=== PATIENT | male | born 1945 | race Caucasian/White ===

== ENCOUNTER 2016-11-13 09:03 | Day surgery (SDC) | payer MEDICARE, BC ==
[~2016-11-13] VITALS: Ht 147.3 cm; Wt 64.4 kg
[~2016-11-13 09:03] MED LIST: BUPIVACAINE-EPI 0.25%-1:200000 MPF 30 ML VIAL. ONE; HYDROmorphone 2 MG/ML VIAL IV PRN; IV RINGERS,LACTATED 1000ML 1,000 ML IV SCH; LIDOCAINE 1% 1 ML SYRINGE. ID PRN; MORPHINE SULFATE 2 MG/ML DISP.SYRIN. IV PRN; ONDANSETRON PF 4 MG/2 ML VIAL. IV PRN; PROCHLORPERAZINE 10 MG/2 ML VIAL. IV PRN; fentaNYL PF VIAL 100 MCG/2 ML VIAL IV PRN
[2016-11-13] MEDS ORDERED: LIDOCAINE 2% PF Vial for OR 5 ML VIAL. ONE (09:09)
[2016-11-13] MEDS ORDERED: fentaNYL PF VIAL 100 MCG/2 ML VIAL ONE ×3 (09:09→12:41)
[2016-11-13] MEDS ORDERED: PROPOFOL 20 ML IV ONE (09:09)
[2016-11-13] MEDS ORDERED: SUCCINYLCHOLINE 200 MG/10 ML VIAL. ONE (09:09)
[2016-11-13] MEDS ORDERED: GABA-586 PO (09:28)
[2016-11-13] MEDS ORDERED: ATOR10TA60 PO (09:28)
[2016-11-13] MEDS ORDERED: ASPI-482 PO (09:28)
[2016-11-13] MEDS ORDERED: OXYC-328 PO (09:28)
[2016-11-13] MEDS ORDERED: SCOPOLAMINE 1.5MG PATCH. TD ONE ×3 (09:41→10:00)
[2016-11-13] MEDS ORDERED: ceFAZolin 2GM PREMIX 2 GM/50 ML BAG IV ONE (10:00)
[2016-11-13] MEDS ORDERED: DEXAMETHASONE SOD PHOS 20 MG/5 ML VIAL. ONE (10:34)
[2016-11-13] MEDS ORDERED: DESFLURANE 31 TO 60 MINUTES IH ONE (10:34)
[2016-11-13] MEDS ORDERED: GLYCOPYRROLATE 1 MG/5 ML VIAL. ONE (11:12)
[2016-11-13] MEDS ORDERED: ONDANSETRON PF 4 MG/2 ML VIAL. ONE (11:12)
--- NOTE | 2016-11-13 11:27 | PDOC4 ---
Operative Note Operative Note Date: 11/13/2016 Preoperative diagnosis: Right inguinal hernia Postoperative diagnosis: Same Procedure: Robotic-assisted laparoscopic right inguinal hernia repair with mesh Surgeon: Jim Specimen: None Dictation: Patient is a 71-year-old male with complaints of a painful right inguinal hernia. Procedure of robotic-assisted laparoscopic right inguinal hernia repair with mesh was explained to the patient in detail all risks and benefits were also discussed including bleeding infection injury to intra- abdominal contents possibly necessitating further or open operations. The patient seemed understanding gave both verbal and written consent to have the procedure performed. Patient was taken to the operating room placed in supine position general anesthesia was initiated once patient was asleep and intubated he was then placed in low lithotomy positioning. His abdomen was prepped and draped usual sterile fashion using ChloraPrep. At this point a area and the left upper quadrant was injected with half percent Marcaine with epinephrine and an incision was made with 11 blade scalpel using a Visiport direct access was obtained to the abdominal cavity and a pneumoperitoneum was achieved. The abdomen was inspected with a 5 mm camera no other at maladies were noted he had no adhesions. At this point 8 mm da Dominique ports were placed one in the left mid abdomen one at the umbilicus and one in the right mid abdomen all under direct visualization. At this time the da Dominique robot was brought in and docked all the ports 30 camera was placed through the umbilical port using a grasper and Endo Chuck scissors a window was propagated in the peritoneum over the hernia defect reducing the hernia contents. Pro medical record technician mesh was then placed over the hernia defect. And the peritoneum was closed with a running 2-0 Vicryl V lock suture. Once this was complete the pneumoperitoneum was reduced all ports removed the skin incisions were all closed at all port sites 4 septic Monocryl Mastisol Steri-Strips and island dressings applied. Patient was awakened and extubated in the operating room and taken to recovery in stable condition all sponge instrument and needle counts listed as correct estimated blood loss 5 mL. SAMMY GOLDMAN MD Nov 13, 2016 11:27
--- NOTE | 2016-11-13 11:28 | DISCH ---
DISCHARGE INSTRUCTIONS Condition on Discharge Condition on Discharge: Stable Activity After Discharge Activity Instructions for Disc: Avoid exertion Other activity instructions: No lifting> 20lbs for 2 weeks Diet after Discharge Diet after Discharge: Regular Wound Incision Care Other wound/incision instructi: May shower in 24 hours Contacting the after DC Call your doctor for: If your condition worsens Follow-Up Follow up with: Dr Goldman in 2 weeks SAMMY GOLDMAN MD Nov 13, 2016 11:28
[2016-11-13] MEDS: fentaNYL PF VIAL 100 MCG/2 ML VIAL IV PRN ×3 (11:51→12:44)
[2016-11-13] MEDS ORDERED: HYDROcodone/APAP 5/325MG 1 TAB TABLET PO ONE (12:30)
[2016-11-13] MEDS ORDERED: HYDR-971 PO (12:31)
[2016-11-13 13:15] VITALS: BP 131/63
== END 2016-11-13 13:25 | disposition home or self-care (01) ==
LOC: SURG 09:03
PROVIDERS: ATTEND Surgery
DX: K40.90 Unilateral inguinal hernia, without obstruction or gangrene, not specified as recurrent (principal); E78.00 Pure hypercholesterolemia, unspecified; Z72.89 Other problems related to lifestyle; Z72.0 Tobacco use; Z85.46 Personal history of malignant neoplasm of prostate
CPT/HCPCS: 49650; C1781; J0330; J0690; J1100; J2405; J2704; J3010; J3490; J2001